=== PATIENT | male | born 1965 ===

== ENCOUNTER 2017-03-18 17:52 | Emergency (ER) | payer MEDICAID ==
[2017-03-18 17:53] VITALS: BMI 33.9
[2017-03-18 18:00] VITALS: BP 119/87; PULSE 103; RESP 20; TEMP 98.7; O2SAT 98
[2017-03-18] MEDS ORDERED: Piperacillin/Tazobact 3.375 GM in Sodium Chloride 0.9% 100 ML IVPB STA (18:15)
--- NOTE | 2017-03-18 18:24 | ED PDOC ---
HPI: General Adult Time Seen by Provider: 03/18/17 18:07 Chief Complaint (Nursing): Lower Extremity Problem/Injury History Per: Patient Additional Complaint(s): Pt. states for the past week he's had swelling to the L leg and over the past 2 days he's had worsening redness. Further reports he sustained a cut to the area of the leg just prior to developing the redness. Denies numbness, tingling, fever, SOB, hx of DVT/PE. Of note, pt. has hx of HIV and is compliant with meds. Last viral load and CD4 coung was done earlier this week and was WNL. Past Medical History Reviewed: Historical Data, Nursing Documentation, Vital Signs Vital Signs: Last Vital Signs Temp 98.7 F 03/18/17 17:57 Pulse 103 H 03/18/17 17:57 Resp 20 03/18/17 17:57 BP 119/87 03/18/17 17:57 Pulse Ox 98 03/18/17 19:25 - Medical History PMH: Arthritis, Asthma, Fractures (RT.SHOULDER), HIV, HTN, Hyperlipidemia, Hypothyroidism, Peripheral Edema, Pneumonia Denies: Chronic Kidney Disease - Surgical History Surgical History: Endoscopy - Family History Family History: States: No Known Family Hx - Home Medications Home Medications: Ambulatory Orders Medication Instructions Recorded Albuterol Sulfate [Proair Hfa] 2 puff IH Q6H PRN 10/13/15 Darunavir [Prezista] 800 mg PO DAILY 10/13/15 Ritonavir [Norvir] 100 mg PO DAILY 10/13/15 Atomoxetine HCl [Strattera] 1 cap PO DAILY 03/17/17 Diclofenac Sodium 1 dose TOP PRN PRN 03/17/17 Dolutegravir Sodium [Tivicay] 1 tab PO DAILY 03/17/17 Levothyroxine [Synthroid] 1 tab PO DAILY 03/17/17 hydrOXYzine Pamoate [Vistaril] 1 cap PO DAILY PRN 03/17/17 hydroCHLOROthiazide [Hydrodiuril] 1 tab PO DAILY 03/17/17 - Allergies Allergies/Adverse Reactions: Allergies Allergy/AdvReac Type Severity Reaction Status Date / Time No Known Allergies Allergy Verified 03/18/17 17:56 Review of Systems ROS Statement: Except As Marked, All Systems Reviewed And Found Negative Musculoskeletal: Positive for: Leg Pain Physical Exam - Physical Exam Appears: Positive for: Well, Non-toxic, No Acute Distress Skin: Positive for: Normal Color, Warm. Negative for: Rash Cardiovascular/Chest: Positive for: Regular Rate, Rhythm Respiratory: Positive for: CNT, Normal Breath Sounds Gastrointestinal/Abdominal: Positive for: Normal Exam, Soft. Negative for: Tenderness Back: Positive for: Normal Inspection Extremity: Positive for: Normal ROM, Other (L lower leg with non-pitting edema and moderate non-circumferential erythema on medial surface without fluctuance or induration above erythema there is a superficial abrasion) - Laboratory Results Result Diagrams: 03/18/17 18:45 03/18/17 18:45 - ECG O2 Sat by Pulse Oximetry: 98 - Radiology X-Ray: Interpreted by Me (CXR) X-Ray Interpretation: No Acute Disease - Progress ED Course And Treament: Labs ordered. Duplex RLE vein ordered. Zosynv IV, vancomycin IV ordered. Tetanus prophylaxis administered. 1921 Lactate 2.4 3 hour VBG ordered. Case d/w Dr. Goodman and recommends admission. Case d/w Dr. Mahajan, FP resident, and arrangements made for admission. Disposition - Clinical Impression Clinical Impression: Cellulitis, SIRS (systemic inflammatory response syndrome) - Patient ED Disposition Is Patient to be Admitted: Yes - Disposition Disposition Time: 19:25 Condition: STABLE - Pt Status Changed To: Hospital Disposition Of: Inpatient - Admit Certification Admit to Inpatient:: After my assessment, the patient will require hospitalization for at least two midnights. This is because of the severity of symptoms shown, intensity of services needed, and/or the medical risk in this patient being treated as an outpatient.
[2017-03-18] MEDS ORDERED: Vancomycin 1 g Inj ONE (18:28)
[2017-03-18 18:53] LABS: BASO % 0.3 % (0.0-2.0); EOS # 0.1 K/uL (0.0-0.7); HEMOGLOBIN 13.5 g/dL (12.0-18.0); LYMPH # 3.4 K/uL (1.0-4.3); MEAN CELL VOLUME 94.5 fl (80.0-94.0); MEAN CORPUSCULAR HEMOGLOBIN 31.3 pg (27.0-31.0); MEAN CORPUSCULAR HGB CONC 33.2 g/dL (33.0-37.0); MEAN PLATELET VOLUME 8.2 fl (7.2-11.7); MONO # 1.9 K/uL (0.0-0.8); NEUT # 7.2 K/uL (1.8-7.0); NEUT % 56.7 % (50.0-75.0); RBC 4.3 Mil/uL (4.40-5.90); RED CELL DISTRIBUTION WIDTH 12.8 % (11.5-14.5); WHITE BLOOD COUNT 12.7 K/uL (4.8-10.8)
[2017-03-18 19:08] LABS: VENOUS BLOOD GAS PCO2 72 mmHg (40-60); VENOUS BLOOD GAS PO2 41 mm/Hg (30-55); VENOUS BLOOD PH 7.34 (7.32-7.43)
[2017-03-18 19:13] LABS: ALBUMIN 4.7 g/dL (3.5-5.0); ALT/SGPT 66 U/L (21-72); AST/SGOT 42 U/L (17-59); BLOOD UREA NITROGEN 37 mg/dl (9-20); CALCIUM 10.2 mg/dL (8.4-10.2); GFR AFRICAN-AMERICAN > 60; GFR NON-AFRICAN AMERICAN > 60
[2017-03-18] MEDS ORDERED: Sodium Chloride 0.9% 1,000 ML IV STA (19:19)
--- NOTE | 2017-03-18 20:04 | RAD ---
HISTORY: clearance COMPARISON: No prior. FINDINGS: LUNGS: No active pulmonary disease. PLEURA: No significant pleural effusion identified, no pneumothorax apparent. CARDIOVASCULAR: Normal. OSSEOUS STRUCTURES: No significant abnormalities. VISUALIZED UPPER ABDOMEN: Normal. OTHER FINDINGS: None. IMPRESSION: No active disease.
--- NOTE | 2017-03-19 09:45 | CARD ---
APPROVED REPORT EKG Measurement Heart [id number] <Conclusion> Sinus bradycardia Incomplete right bundle branch block Borderline ECG
== END 2017-03-18 20:25 | disposition left against medical advice (07) ==
LOC: H.ER 17:52 → H.ERHOLD 19:14 → UNDOADMIN 19:14 → H.ER 20:25
DX: L03.116 Cellulitis of left lower limb (principal); R65.10 Systemic inflammatory response syndrome (SIRS) of non-infectious origin without acute organ dysfunction

== ENCOUNTER 2017-09-20 11:23 | Emergency (ER) | payer MEDICAID ==
[2017-09-20 11:23] VITALS: BMI 33.9
[2017-09-20 11:46] VITALS: RESP 18; O2SAT 96
--- NOTE | 2017-09-20 12:41 | ED PDOC ---
HPI: CCC, URI, Sore Throat Time Seen by Provider: 09/20/17 11:53 Chief Complaint (Nursing): Flu-like Symptoms Chief Complaint (Provider): Flu History Per: Patient Additional Complaint(s): 52 yo male, PMH of HIV, pt c/o cough, fever, bodyaches and congestions for 5 days. Past Medical History Reviewed: Nursing Documentation, Vital Signs Vital Signs: Last Vital Signs Temp 98.4 F 09/20/17 11:44 Pulse 84 09/20/17 11:44 Resp 18 09/20/17 11:44 BP 125/86 09/20/17 11:44 Pulse Ox 96 09/20/17 12:41 - Medical History PMH: Arthritis, Asthma, Fractures (RT.SHOULDER), HIV, HTN, Hyperlipidemia, Hypothyroidism, Peripheral Edema, Pneumonia - Surgical History Surgical History: Endoscopy - Family History Family History: States: Unknown Family Hx - Living Arrangements Living Arrangements: Other - Social History Current smoker - smoking cessation education provided: No Alcohol: > 2 Drinks/Day Drugs: Denies - Home Medications Home Medications: Ambulatory Orders Medication Instructions Recorded Albuterol Sulfate [Proair Hfa] 2 puff IH Q6H PRN 10/13/15 Darunavir [Prezista] 800 mg PO DAILY 10/13/15 Ritonavir [Norvir] 100 mg PO DAILY 10/13/15 Atomoxetine HCl [Strattera] 1 cap PO DAILY 03/17/17 Diclofenac Sodium 1 dose TOP PRN PRN 03/17/17 Dolutegravir Sodium [Tivicay] 1 tab PO DAILY 03/17/17 Levothyroxine [Synthroid] 1 tab PO DAILY 03/17/17 hydrOXYzine Pamoate [Vistaril] 1 cap PO DAILY PRN 03/17/17 hydroCHLOROthiazide [Hydrodiuril] 1 tab PO DAILY 03/17/17 Cephalexin [cephalexin] 500 mg PO Q6 #28 cap 03/18/17 Sulfamethoxazole/Trimethoprim 2 tab PO BID #28 tab 03/18/17 [Bactrim DS 800 mg-160 mg] Oseltamivir [Tamiflu] 75 mg PO BID 5 Days cap 09/20/17 Promethazine HCl/Codeine 5 ml PO HS #80 ml 09/20/17 [Prometh-Codein 6.25-10 mg/5 ml] - Allergies Allergies/Adverse Reactions: Allergies Allergy/AdvReac Type Severity Reaction Status Date / Time No Known Allergies Allergy Verified 09/20/17 11:44 Review of Systems ROS Statement: Except As Marked, All Systems Reviewed And Found Negative Constitutional: Positive for: Fever, Weakness ENT: Positive for: Nose Congestion Respiratory: Positive for: Cough Physical Exam - Reviewed Nursing Documentation Reviewed: Yes Vital Signs Reviewed: Yes - Physical Exam Appears: Positive for: Well, Non-toxic, No Acute Distress Head Exam: Positive for: ATRAUMATIC, NORMAL INSPECTION, NORMOCEPHALIC Skin: Positive for: Normal Color, Warm, DRY Eye Exam: Positive for: EOMI, Normal appearance, PERRL ENT: Positive for: Normal ENT Inspection Neck: Positive for: Normal, Painless ROM Cardiovascular/Chest: Positive for: Regular Rate, Rhythm Respiratory: Positive for: CNT, Normal Breath Sounds Gastrointestinal/Abdominal: Positive for: Normal Exam, Bowel Sounds, Soft Back: Positive for: Normal Inspection Extremity: Positive for: Normal ROM Neurologic/Psych: Positive for: Alert, Oriented - Laboratory Results Result Diagrams: 09/20/17 13:11 09/20/17 13:11 - ECG O2 Sat by Pulse Oximetry: 96 Medical Decision Making Medical Decision Making: IV access established and treatment initiated with IVF and Duo nebs labs resulted and reviewed with Pt who demonstrated full understanding Pt doing well on re-eval, asking to go home Given prophylactic Tamiflu and RX for promethazine with codeine Disposition - Clinical Impression Clinical Impression: Influenza-like symptoms - Patient ED Disposition Is Patient to be Admitted: No - Disposition Disposition: Routine/Home Disposition Time: 14:06 Condition: STABLE Prescriptions: Oseltamivir [Tamiflu] 75 mg PO BID 5 Days cap Promethazine HCl/Codeine [Prometh-Codein 6.25-10 mg/5 ml] 5 ml PO HS #80 ml Instructions: Viral Syndrome (ED) Forms: [employer] (Greek)
--- NOTE | 2017-09-20 13:00 | RAD ---
HISTORY: COMPARISON: 03/18/2017. TECHNIQUE: Chest PA and lateral FINDINGS: LINES AND TUBES: None. LUNG AND PLEURA: The lungs are well inflated and clear. HEART AND MEDIASTINUM: The heart is not enlarged. The hilar and mediastinal contours are within normal limits. SKELETAL STRUCTURES: The bony structures are within normal limits for the patient's age. VISUALIZED UPPER ABDOMEN: Normal. OTHER FINDINGS: None. IMPRESSION: No active pulmonary disease.
[2017-09-20] MEDS ORDERED: Albuterol-Ipratrop 3 mg / 0.5 (3 ml) UD ONE (13:28)
[2017-09-20 13:29] LABS: BASO % 0.2 % (0.0-2.0); EOS # 0.1 K/uL (0.0-0.7); HEMOGLOBIN 13.5 g/dL (12.0-18.0); LYMPH # 3.2 K/uL (1.0-4.3); LYMPH % 39.2 % (20.0-40.0); MEAN CELL VOLUME 93.9 fl (80.0-94.0); MEAN CORPUSCULAR HEMOGLOBIN 30.8 pg (27.0-31.0); MEAN CORPUSCULAR HGB CONC 32.7 g/dL (33.0-37.0); MEAN PLATELET VOLUME 8.7 fl (7.2-11.7); MONO % 12.3 % (0.0-10.0); NEUT # 3.9 K/uL (1.8-7.0); NEUT % 47.3 % (50.0-75.0); NRBC % 0.1 % (0.0-0.0); RBC 4.4 Mil/uL (4.40-5.90); RED CELL DISTRIBUTION WIDTH 14.1 % (11.5-14.5); WHITE BLOOD COUNT 8.2 K/uL (4.8-10.8)
[2017-09-20 13:33] LABS: ALBUMIN 4.4 g/dL (3.5-5.0); ALT/SGPT 52 U/L (21-72); AST/SGOT 39 U/L (17-59); BLOOD UREA NITROGEN 13 mg/dl (9-20); CALCIUM 9.1 mg/dL (8.4-10.2); GFR AFRICAN-AMERICAN > 60; GFR NON-AFRICAN AMERICAN > 60
[2017-09-20] MEDS ORDERED: Albuterol-Ipratrop 3 mg / 0.5 (3 ml) UD INH STA (13:58)
[2017-09-20 14:33] VITALS: BP 120/78; PULSE 90; TEMP 98
== END 2017-09-20 14:15 | disposition home or self-care (01) ==
LOC: H.ER 11:23
DX: J11.1 Influenza due to unidentified influenza virus with other respiratory manifestations (principal); B20 Human immunodeficiency virus [HIV] disease; E03.9 Hypothyroidism, unspecified; E78.5 Hyperlipidemia, unspecified; I10 Essential (primary) hypertension; J45.909 Unspecified asthma, uncomplicated